=== PATIENT | male | born 1970 | race Asian ===

== ENCOUNTER 2016-09-02 13:36 | Outpatient (CLI) | payer BC ==
[2016-09-03 12:16] LABS: *MUMPS AB (IGG) <9.0 AU/mL (Immune >10.9); *RUBEOLA AB (IGG) >300.0 AU/mL (Immune >29.9)
== END 2016-09-02 23:59 | disposition home or self-care (01) ==
LOC: LAB 13:36
PROVIDERS: ATTEND Nurse Practitioner
DX: Z00.01 Encounter for general adult medical examination with abnormal findings (principal)
CPT/HCPCS: 36415; 86735; 86762; 86765

== ENCOUNTER → 2017-03-30 | Emergency (ER) | payer BC, OTHER ==
[2017-03-30 18:12] LABS: BASOPHILS % (AUTO) 0.5 % (0.0-2.0); EOSINOPHILS # (AUTO) 0.1 /CMM (0.0-0.7); EOSINOPHILS % (AUTO) 1.7 % (0.0-6.0); HEMATOCRIT 45 % (39-51); HEMOGLOBIN 15.2 g/dL (13.5-17.5); LYMPHOCYTES # (AUTO) 2.9 /CMM (0.8-4.8); LYMPHOCYTES % (AUTO) 35.2 % (20.0-44.0); MEAN CORPUSCULAR HEMOGLOBIN 29 PG (26.0-33.0); MEAN CORPUSCULAR HGB CONC 34 g/dl (31.0-36.0); MEAN CORPUSCULAR VOLUME 86 fL (80-96); MONOCYTES # (AUTO) 0.7 /CMM (0.1-1.30); NEUTROPHILS # (AUTO) 4.3 /CMM (1.8-8.9); NEUTROPHILS % (AUTO) 53.6 % (43.0-81.0); PLATELET COUNT (AUTO) 357 /CMM (150-450); RDW COEFFICIENT OF VARIATION 13.4 (11.5-15.0); WHITE BLOOD COUNT (AUTO) 8.1 K/uL (4.3-11.0)
[2017-03-30 18:13] LABS: APPEARANCE,URINE CLEAR (CLEAR); BILIRUBIN,URINE NEGATIVE (NEGATIVE); BLOOD, URINE 1+ Ery/uL (NEGATIVE); COLOR,URINE YELLOW (YELLOW); KETONES,URINE NEGATIVE (NEGATIVE); LEUKOCYTE ESTERASE ,URINE NEGATIVE (NEGATIVE); NITRITE, URINE NEGATIVE (NEGATIVE); PROTEIN,URINE NEGATIVE (NEGATIVE); UGLUCOSE NEGATIVE (NEGATIVE); UROBILINOGEN,URINE 0.2 EU/dL (0.2)
[2017-03-30 18:29] LABS: ALBUMIN 4.1 g/dL (3.4-5.0); BILIRUBIN,TOTAL 0.2 mg/dL (0.2-1.0); CALCIUM, SERUM 9.4 mg/dL (8.5-10.1); CREATININE 1.1 mg/dL (0.6-1.3); POTASSIUM 3.9 mmol/L (3.5-5.1); TOTAL PROTEIN, SERUM 8.2 g/dL (6.4-8.2)
[2017-03-30 18:37] LABS: THYROID STIMULATING HORMONE 2.012 uIU/mL (0.358-3.74)
[2017-03-30 18:40] LABS: BACTERIA,URINE None seen /HPF (None Seen); SQUAMOUS EPITHELIAL CELL,UR Rare /HPF (None Seen); WBC,URINE 0-2 /HPF (0-3)
== END | disposition left against medical advice (07) ==
LOC: ER 17:36
DX: Z00.00 Encounter for general adult medical examination without abnormal findings (principal)
CPT/HCPCS: 36415; 80053-TC; 80061-TC; 81000-TC; 82306; 84443-TC; 85025-TC; Z7502

== ENCOUNTER 2018-09-02 08:51 | Outpatient (CLI) | payer BC ==
[2018-09-02 09:36] LABS: BASOPHILS # (AUTO) 0.1 /CMM (0.0-0.2); BASOPHILS % (AUTO) 1.5 % (0.0-2.0); EOSINOPHILS % (AUTO) 2.7 % (0.0-6.0); HEMATOCRIT 48 % (39-51); HEMOGLOBIN 16.3 g/dL (13.5-17.5); LYMPHOCYTES # (AUTO) 1.8 /CMM (0.8-4.8); MEAN CORPUSCULAR HGB CONC 34 g/dl (31.0-36.0); MEAN CORPUSCULAR VOLUME 88 fL (80-96); MONOCYTES # (AUTO) 0.6 /CMM (0.1-1.30); MONOCYTES % (AUTO) 8.8 % (2.0-12.0); PLATELET COUNT (AUTO) 350 /CMM (150-450); WHITE BLOOD COUNT (AUTO) 6.7 K/uL (4.3-11.0)
[2018-09-02 09:45] LABS: APPEARANCE,URINE Clear (CLEAR); BILIRUBIN,URINE Negative (NEGATIVE); BLOOD, URINE Trace-intact Ery/uL (NEGATIVE); COLOR,URINE Yellow (YELLOW); KETONES,URINE Negative (NEGATIVE); LEUKOCYTE ESTERASE ,URINE Negative (NEGATIVE); NITRITE, URINE Negative (NEGATIVE); PROTEIN,URINE Negative (NEGATIVE); UGLUCOSE Negative (NEGATIVE); UROBILINOGEN,URINE 0.2 EU/dL (0.2)
[2018-09-02 09:46] LABS: BACTERIA,URINE None seen /HPF (None Seen); RBC,URINE 0-2 /HPF (0-2); WBC,URINE NONE SEEN /HPF (0-3)
[2018-09-02 09:47] LABS: SQUAMOUS EPITHELIAL CELL,UR None Seen /HPF (None Seen)
[2018-09-02 09:49] LABS: ALBUMIN 4.1 g/dL (3.4-5.0); BILIRUBIN,TOTAL 0.4 mg/dL (0.2-1.0); CALCIUM, SERUM 8.8 mg/dL (8.5-10.1); CREATININE 1.1 mg/dL (0.6-1.3); POTASSIUM 4.3 mmol/L (3.5-5.1)
[2018-09-02 10:10] LABS: FREE T4 (FREE THYROXINE) 0.84 ng/dL (0.76-1.46); PROSTATE SPECIFIC ANTIGEN SCR 0.98 ng/mL (0.00-4.00); THYROID STIMULATING HORMONE 1.674 uIU/mL (0.358-3.74); URIC ACID 6.5 mg/dL (2.6-7.2)
== END 2018-09-02 23:59 | disposition home or self-care (01) ==
LOC: LAB 08:51
PROVIDERS: ATTEND Legal Medicine
DX: Z00.00 Encounter for general adult medical examination without abnormal findings (principal)
CPT/HCPCS: 36415; 80053-TC; 80061-TC; 81000-TC; 82306; 82626; 82728-TC; 83540-TC; 84153-TC; 84402; 84403; 84439-TC; 84443-TC; 84550-TC; 85025-TC

== ENCOUNTER 2018-09-30 10:13 | Outpatient (CLI) | payer BC | END 2018-09-30 23:59 | disposition home or self-care (01) | LOC: MRI 10:13 | PROVIDERS: ATTEND Legal Medicine | DX: M25.561 Pain in right knee (principal); R60.0 Localized edema | CPT/HCPCS: 73721-TC ==

== ENCOUNTER 2018-10-05 12:31 | Outpatient (CLI) | payer BC | END 2018-10-05 23:59 | disposition home or self-care (01) | LOC: CARD 12:31 | PROVIDERS: ATTEND Legal Medicine | DX: R22.41 Localized swelling, mass and lump, right lower limb (principal) | CPT/HCPCS: 93971-TC ==

== ENCOUNTER 2018-10-13 14:09 | Outpatient (CLI) | payer BC | END 2018-10-13 23:59 | disposition home or self-care (01) | LOC: RAD 14:09 | PROVIDERS: ATTEND Legal Medicine | DX: M48.02 Spinal stenosis, cervical region (principal); M50.21 Other cervical disc displacement, high cervical region; M25.78 Osteophyte, vertebrae; M12.88 Other specific arthropathies, not elsewhere classified, other specified site; R51 Headache | CPT/HCPCS: 70551-TC; 72141-TC ==

== ENCOUNTER 2019-05-16 14:55 | Emergency (ER) | payer BC, OTHER ==
[~2019-05-16] VITALS: Ht 160 cm; Wt 63.5 kg
[2019-05-16 15:03] VITALS: BP 127/86
[2019-05-18] MEDS ORDERED: HYDR200T81 PO (13:45)
== END 2019-05-16 15:41 | disposition home or self-care (01) ==
LOC: ER 14:57
DX: B97.29 Other coronavirus as the cause of diseases classified elsewhere (principal); J20.8 Acute bronchitis due to other specified organisms
CPT/HCPCS: 36415; 71045-TC; U0002

== ENCOUNTER 2019-05-17 11:27 | Inpatient (IN) | payer BC, OTHER ==
[~2019-05-17] VITALS: Ht 157.5 cm; Wt 66.2 kg
--- NOTE | 2019-05-17 11:27 | NUR ---
[facility] FRM HOME, FOR FEVER, NAUSEA, VOMITING AND DIARRHEA. +COVID RESULTED YESTERDAY. TO ER BED 8, HOOKED TO MONITOR, CHANGED TO HOSP GOWN, WARM BLANKET PROVIDED, DR CHAN AT BEDSIDE.
[2019-05-17] MEDS ORDERED: ONDANSETRON HCL/PF 4 MG/2 ML VIAL ONE (11:43)
--- NOTE | 2019-05-17 11:55 | NUR ---
ROOM 260
[2019-05-17] MEDS ORDERED: IV LR 1000 ML 1,000 ML IV ONE (12:00)
[2019-05-17] MEDS ORDERED: ONDANSETRON HCL/PF 4 MG/2 ML VIAL IV ONE (12:00)
[2019-05-17 12:13] LABS: BASOPHILS % (AUTO) 0.5 % (0.0-2.0); EOSINOPHILS % (AUTO) 0.1 % (0.0-6.0); HEMATOCRIT 45 % (39-51); HEMOGLOBIN 15.5 g/dL (13.5-17.5); LYMPHOCYTES # (AUTO) 1.6 /CMM (0.8-4.8); LYMPHOCYTES % (AUTO) 32.4 % (20.0-44.0); MEAN CORPUSCULAR HGB CONC 34 g/dl (31.0-36.0); MEAN CORPUSCULAR VOLUME 86 fL (80-96); MONOCYTES # (AUTO) 0.5 /CMM (0.1-1.30); MONOCYTES % (AUTO) 10.4 % (2.0-12.0); NEUTROPHILS # (AUTO) 2.8 /CMM (1.8-8.9); NEUTROPHILS % (AUTO) 56.6 % (43.0-81.0); PLATELET COUNT (AUTO) 247 /CMM (150-450); RED BLOOD CELL COUNT(AUTO) 5.23 MIL/uL (4.5-6.0)
--- NOTE | 2019-05-17 12:17 | NUR ---
REPORT GIVEN TO AYAKA GIMENEZ OF ICU
[2019-05-17 12:19] LABS: CALCIUM, SERUM 8.4 mg/dL (8.5-10.1); CREATININE 1.5 mg/dL (0.6-1.3); POTASSIUM 3.9 mmol/L (3.5-5.1)
[2019-05-17 12:25] LABS: ALBUMIN 3.8 g/dL (3.4-5.0); BILIRUBIN,TOTAL 0.3 mg/dL (0.2-1.0); TOTAL PROTEIN, SERUM 7.6 g/dL (6.4-8.2)
[2019-05-17 13:00] VITALS: BP 133/75
[2019-05-17] MEDS ORDERED: MORPHINE SULFATE INJ 2 MG/ML DISP.SYRIN IM PRN (13:30)
[2019-05-17] MEDS ORDERED: ACETAMINOPHEN ES 500 MG TABLET PO PRN (13:30)
[2019-05-17] MEDS ORDERED: CEFTRIAXONE 1 G in IV D5W 50 ML IV SCH ×2 (14:00→15:00)
[2019-05-17] MEDS ORDERED: ZITHROMAX 500 MG/250 ML D5W IV SCH ×2 (14:00)
[2019-05-17] MEDS: IV D5/ 0.9% NACL 1,000 ML IV PRN (14:09)
[2019-05-17] MEDS: HYDROXYCHLOROQUINE 200 MG TABLET PO SCH ×2 (14:11→21:04)
[2019-05-17] MEDS ORDERED: TEMAZEPAM 15 MG CAPSULE PO PRN (14:30)
[2019-05-17] MEDS ORDERED: ONDANSETRON HCL/PF 4 MG/2 ML VIAL IV PRN (14:30)
[2019-05-17] MEDS ORDERED: HYDROCODONE/APAP 5/325MG 1 EACH TABLET PO PRN (14:30)
[2019-05-17 19:24] VITALS: BP 103/67
--- NOTE | 2019-05-17 19:25 | NUR ---
SCUBA DIVING TEACHER RCD PT W/DX OF COVID 19; PT IS A/Ox 4 INDEPENDENT W/ADLs; NSR ON MONITOR. REQUEST BP TO BE CHECKED Q4HRS. PT IS ON ROOM AIR. NO FEVER AT THIS TIME. PT DENIES PAIN OR SHORTNESS OF BREATH. D5NS @ 100 ML/HR VIA RIGHT HAND 22 G. REQUEST FOR MEDICATIONS TO BE GIVEN AT 2100. PT ATE ABOUT 20% OF DINNER. CONTINUE TO MONITOR.
[2019-05-17 20:00] VITALS: BP 103/67
--- NOTE | 2019-05-17 21:00 | NUR ---
PORTABLE ROUTER OPERATOR PT GIVEN RESTORIL PER REQUEST; PT GIVEN SPECIMEN CUP FOR URINE SAMPLE.
--- NOTE | 2019-05-17 22:30 | NUR ---
HIDE CURER REPORT GIVEN TO Saturnino SINGER RN FOR ROMINA.
--- NOTE | 2019-05-17 23:00 | NUR ---
CURING PRESS OPERATOR NOTE RECEIVED PATIENT AROUND THIS TIME. PATIENT HAS DX OF POSITIVE COVID-19. PATIENT IS IN BED RESTING. BREATHING EVEN AND NON LABORED. NO APPARENT DISTRESS NOTED AT THIS TIME. A&O X4. VERBALLY RESPONSIVE. AMBULATORY WITHOUT ASSISTANCE. PATIENT REFUSED CONTINUOUS BP AND O2 SAT MONITORING. MOTIVATED TO SELF CARE. WILL CONTINUE TO MONITOR.
[2019-05-18] VITALS: BP 103/59
[2019-05-18] MEDS: IV D5/ 0.9% NACL 1,000 ML IV PRN ×2 (01:10→11:45)
--- NOTE | 2019-05-18 02:15 | NUR ---
MEDIA/INSTRUCTIONAL DESIGNER NOTE URINE SAMPLE COLLECTED AND STORED IN BIOHAZARD REFRIGERATOR FOR UA.
[2019-05-18 04:00] VITALS: BP 105/66
[2019-05-18 04:40] LABS: APPEARANCE,URINE CLEAR (CLEAR); BILIRUBIN,URINE NEGATIVE (NEGATIVE); BLOOD, URINE NEGATIVE Ery/uL (NEGATIVE); COLOR,URINE YELLOW (YELLOW); KETONES,URINE NEGATIVE (NEGATIVE); LEUKOCYTE ESTERASE ,URINE NEGATIVE (NEGATIVE); NITRITE, URINE NEGATIVE (NEGATIVE); PH,URINE 6.5 (5.0-8.0); PROTEIN,URINE NEGATIVE (NEGATIVE); UGLUCOSE NEGATIVE (NEGATIVE); UROBILINOGEN,URINE 0.2 EU/dL (0.2)
--- NOTE | 2019-05-18 06:58 | NUR ---
ASSOCIATE PROFESSOR OF MATHEMATICS NOTE PATIENT IS IN BED RESTING. ALL NEEDS ATTENDED AND MET. PATIENT IS KEPT CLEAN, DRY, AND COMFORTABLE. PATIENT IS MOTIVATED TO SELF CARE. WILL ENDORSE TO AM SHIFT RN FOR CONTINUATION OF CARE
[2019-05-18 07:20] LABS: BASOPHILS % (AUTO) 0.5 % (0.0-2.0); EOSINOPHILS % (AUTO) 0.5 % (0.0-6.0); HEMATOCRIT 40 % (39-51); HEMOGLOBIN 13.3 g/dL (13.5-17.5); LYMPHOCYTES # (AUTO) 1.3 /CMM (0.8-4.8); LYMPHOCYTES % (AUTO) 34.4 % (20.0-44.0); MEAN CORPUSCULAR HGB CONC 33 g/dl (31.0-36.0); MEAN CORPUSCULAR VOLUME 87 fL (80-96); MONOCYTES # (AUTO) 0.4 /CMM (0.1-1.30); MONOCYTES % (AUTO) 9.3 % (2.0-12.0); NEUTROPHILS # (AUTO) 2.1 /CMM (1.8-8.9); NEUTROPHILS % (AUTO) 55.3 % (43.0-81.0); PLATELET COUNT (AUTO) 227 /CMM (150-450); RED BLOOD CELL COUNT(AUTO) 4.61 MIL/uL (4.5-6.0); WHITE BLOOD COUNT (AUTO) 3.9 K/uL (4.3-11.0)
--- NOTE | 2019-05-18 07:30 | NUR ---
FINANCIAL ADMINISTRATOR OPENING NOTE Received patient awake in bed. AO x4. On room air tolerating well. No co pain or discomfort. Sinus rhythm 80s. Patient has R hand peripheral IV running D5 0.9 NS @ 100cc/hr. All extremities within normal limits. Will continue to monitor.
[2019-05-18 07:32] LABS: CALCIUM, SERUM 7.6 mg/dL (8.5-10.1); CREATININE 1.1 mg/dL (0.6-1.3); MAGNESIUM 2.1 mg/dL (1.8-2.4); PHOSPHORUS 3.2 mg/dL (2.5-4.9); POTASSIUM 3.8 mmol/L (3.5-5.1)
[2019-05-18 08:00] VITALS: BP_SYST 107; BP_DIAS 52; BP_DIAS 62
[2019-05-18] MEDS: HYDROXYCHLOROQUINE 200 MG TABLET PO SCH ×2 (08:27→14:39)
[2019-05-18 08:35] VITALS: BP 102/60
[2019-05-18 12:00] VITALS: BP 99/62
[2019-05-18 12:01] VITALS: BP 99/68
[2019-05-18] MEDS ORDERED: HYDR200T81 PO (13:45)
--- NOTE | 2019-05-18 15:27 | NUR ---
WEATHERCASTERBRIMMER BLOCKER NOTE Patient was given discharged instructions. Patient's IV line removed by co-worker Ramona. No bleeding noted. Vital signs within normal limits. No co pain or discomfort. Patient walked out of unit assisted by Ramona in stable condition.
== END 2019-05-18 16:35 | disposition home or self-care (01) | DRG 178 ==
LOC: ER 11:30 → ICU 12:40
PROVIDERS: ADMIT Legal Medicine; ATTEND Legal Medicine
DX: U07.1 COVID-19 (principal); N17.9 Acute kidney failure, unspecified; E86.0 Dehydration; Z88.3 Allergy status to other anti-infective agents; R19.7 Diarrhea, unspecified; R50.9 Fever, unspecified; M79.10 Myalgia, unspecified site
CPT/HCPCS: 36415; 71045-TC; 80048-TC; 80076-TC; 81000-TC; 83735-TC; 84100-TC; 85025-TC; 86140-TC; 87081-TC; 87086-TC; G0378; J0456; J0696; J2405; J7042; J7060; J7120

== ENCOUNTER 2019-07-19 11:44 | Emergency (ER) | payer BC, OTHER ==
[~2019-07-19] VITALS: Ht 160 cm; Wt 62.6 kg
[~2019-07-19 11:44] MED LIST: HYDR200T81 PO
[2019-07-19 11:45] VITALS: BP 140/96
--- NOTE | 2019-07-20 20:30 | NUR ---
LAB CALLED REGARDING COVID (NEGATIVE) RESULT.
== END 2019-07-19 12:29 | disposition home or self-care (01) ==
LOC: ER 11:44
DX: Z03.818 Encounter for observation for suspected exposure to other biological agents ruled out (principal)
CPT/HCPCS: 99283; U0003

== ENCOUNTER 2021-01-18 07:23 | Outpatient (CLI) | payer BC, OTHER | END 2021-01-18 23:59 | disposition home or self-care (01) | LOC: LAB 07:23 | DX: Z01.812 Encounter for preprocedural laboratory examination (principal); Z20.822 Contact with and (suspected) exposure to COVID-19 | CPT/HCPCS: C9803; U0003 ==